=== PATIENT | male | born 1985 | race Caucasian/White ===

== ENCOUNTER 2020-04-22 05:03 | Day surgery (SDC) | payer OTHER ==
[2020-04-21 13:29] VITALS: BMI 27.1
--- OUTSIDE RECORDS SUMMARY | 2020-04-22 05:09 | XMS ---
:1985 Author Organization [facility] Support Name Relationship Address Phone DAVIES CAMPUSTER LOCAL [address] [facility] [phone] [place] [address] WANDA PATTERSON [address] [place] [address] VIKRAM DAVILA MOTHER [address] [facility] [address] [place] [address] MELINDA DAVILA FATHER [address] [facility] [address] [place] [address] Re-disclosure Warning The records that you are about to access may contain information from federally- assisted alcohol or drug abuse programs. If such information is present, then the following federally mandated warning applies: This information has been disclosed to you from records protected by federal confidentiality rules (42 CFR part 2). The federal rules prohibit you from making any further disclosure of this information unless further disclosure is expressly permitted by the written consent of the person to whom it pertains or as otherwise permitted by 42 CFR part 2. A general authorization for the release of medical or other information is NOT sufficient for this purpose. The Federal rules restrict any use of the information to criminally investigate or prosecute any alcohol or drug abuse patient.The records that you are about to access may contain highly sensitive health information, the redisclosure of which is protected by Article 27-F of the [facility] Public Health law. If you continue you may haveaccess to information: Regarding HIV / AIDS; Provided by facilities licensed or operated by the [facility] Office of Mental Health; or Provided by the [facility] Office for People With Developmental Disabilities. If such information is present, then the following [facility] mandated warning applies: This information has been disclosed to you from confidential records which are protected by state law. State law prohibits you from making any further disclosure of this information without the specific written consent of the person to whom it pertains, or as otherwise permitted by law. Any unauthorized further disclosure in violation of state law may result in a fine or shelter sentence or both. A general authorization for the release of medical or other information is NOT sufficient authorization for further disclosure. Insurance Providers Payer name Policy type / Policy ID Covered Covered constitution party's Policy Plan Coverage type constitution party ID relationship to [employer] Information restrepo [employer] HMO [id number] Results ID Date Data Source [id number] 04/17/2020 11:20:00 AM EDT [facility] Name Value Range Interpretation Description Data Sup porting Code Source(s) Document(s ) SARS [facility] coronavirus 2 RNA This lab was ordered by [facility] and reported by [facility]. Procedure
[2020-04-22] MEDS ORDERED: LIDOCAINE HCL 1% EPINEPHRINE 1:200,000 30 ML VIAL (PF) ONE (07:17)
[2020-04-22] MEDS ORDERED: fentaNYL CITRATE 250 MCG/5 ML VIAL ONE (07:42)
[2020-04-22] MEDS ORDERED: MIDAZOLAM HCL 2 MG/2 ML SINGLE DOSE VIAL ONE (07:43)
--- NOTE | 2020-04-22 08:06 | HP ---
History & Physical Update - History History: No Change - Physical Physical: No Change - Assessment Assessment: No Change - Plan Plan: No Change
[2020-04-22] MEDS ORDERED: SUCCINYLCHOLINE CHLORIDE 200 MG/10 ML SYRINGE ONE (08:13)
[2020-04-22] MEDS ORDERED: ceFAZolin SODIUM 1 GM VIAL IVPB ONE (08:29)
[2020-04-22] MEDS ORDERED: PROPOFOL 20 ML ONE (08:33)
[2020-04-22] MEDS ORDERED: LIDOCAINE 1%/EPI 1:100000 (20 ML MULTI DOSE VIAL) IJ ONE ×2 (08:37)
[2020-04-22] MEDS ORDERED: NEOSTIGMINE METHYLSULFATE 0.5 MG/ML - 10 ML MDV ONE (08:50)
[2020-04-22] MEDS ORDERED: BENZOIN/ALOE VERA/STORAX/TOLU 58 ML BOTTLE ONE (08:56)
--- NOTE | 2020-04-22 10:27 | OP ---
Operative Note - Note: Operative Date: 04/22/20 Pre-Operative Diagnosis: posterior neck mass/lipoma Operation: Excision of posterior neck mass Findings: 5 x 4 cm fibrofatty subfascial mass Post-Operative Diagnosis: Same as Pre-op Surgeon: Helio Winter Anesthesia: General Specimens Removed: lipoma Estimated Blood Loss (mls): 1 Operative Report Dictated: Yes
[2020-04-22 11:06] VITALS: BP 133/86; PULSE 67; TEMP 98
[2020-04-22] MEDS ORDERED: ONDANSETRON 4 MG/2 ML VIAL IVPUSH PRN (13:52)
[2020-04-22] MEDS ORDERED: oxyCODONE HCL 5 MG TABLET PO PRN (13:52)
[2020-04-22] MEDS ORDERED: LACTATED RINGERS SOLUTION 1,000 ML IV SCH (14:00)
--- NOTE | 2020-04-22 18:05 | OP ---
DATE OF OPERATION: 04/22/2020 PROCEDURE: Excision biopsy of posterior neck mass. PREOPERATIVE DIAGNOSIS: Posterior neck mass. POSTOPERATIVE DIAGNOSIS: Posterior neck mass. Rule out lipoma. SURGEON: Helio Winter MD. ANESTHESIA: General endotracheal anesthesia. FINDINGS ON PROCEDURE: This a 34-year-old male who presents with slowly growing mass of the posterior neck to the right of the midline, measuring about 4 x 4 cm in size, soft, smooth, with well defined borders and movable. So due to the size of the mass, patient was advised removal, excision biopsy, and consent was obtained after discussion of the risks, benefits, and alternatives to the procedure. DESCRIPTION OF PROCEDURE: Patient was brought to the operating room and placed in supine position. General endotracheal anesthesia was administered. The patient was then placed in left lateral decubitus position. The operative site was prepped and draped in usual sterile fashion. Using 0.5% Marcaine, local anesthesia was administered at proposed incision site for postoperative anesthesia. A 5-cm skin crease incision over the mass is made. Using scalpel blade number 15, dissection was carried down to subcutaneous tissue. Further dissection using Bovie cautery until the superficial cervical fascia was encountered. The mass was noted to be subfascial in location. The posterior cervical fascia was incised using Bovie cautery to expose the fibrofatty mass. The mass was then carefully excised down to its attachment to the deeper posterior neck muscles and the cervical spine. Once this was completed, hemostasis was achieved using Bovie cautery. The wound was closed with interrupted Vicryl 3-0 suture for the fascia and dermis and continued Biosyn 4-0 suture for the subcuticular layer. The wound closure was reinforced with Steri-Strips and covered with pressure dressing. Patient was placed back in supine position and successfully extubated. Patient was transferred to the post anesthesia care unit in satisfactory condition. Estimated blood loss was about 1 mL, wound class clean. The patient received 1 g of Ancef prior to the start of the procedure. HELIO WINTER M.D. [id number] MTDD
--- NOTE | 2020-04-25 17:59 | PATH ---
Surgical Pathology Report Patient Name: JASMIN DAVILA [facility]. Rec. #: [id number] /Age/Gender: 1985 (Age: 34) / M Account: [id number] Location: [facility] SURGICAL Taken: 04/22/2020 Received: 04/22/2020 Reported: 04/25/2020 Physicians: Helio Winter M.D. Specimen(s) Received POSTERIOR NECK MASS Clinical History Posterior neck mass Final Diagnosis POSTERIOR NECK MASS, EXCISION: MATURE FIBROADIPOSE TISSUE CONSISTENT WITH LIPOMA. Electronically Signed Christin Batista M.D. Gross Description Received in formalin labeled "posterior neck mass," is a 5.0 x 4.5 x 2 cm adipose tissue. Serial sections show homogeneous, yellow, adipose tissue. No hemorrhage or necrosis present. [employer] Supervisor sections are submitted in 4 cassettes. PADDY/04/22/2020 umesh/04/22/2020
== END 2020-04-22 11:10 | disposition home or self-care (01) ==
LOC: JASU-SURG 05:03
PROVIDERS: ATTEND Surgery
PROC: 0JB40ZZ Excision of Right Neck Subcutaneous Tissue and Fascia, Open Approach (ICD-10-PCS; principal; 2020-04-22 08:00)
DX: D17.0 Benign lipomatous neoplasm of skin and subcutaneous tissue of head, face and neck (principal)
CPT/HCPCS: 88304-TC; 94760